=== PATIENT | female | born 1945 | race Caucasian/White ===

== ENCOUNTER 2019-03-01 15:31 | Inpatient (IN) ==
[2019-03-01] MEDS ORDERED: ZOFRAN IV PRN (17:24)
[2019-03-01] MEDS ORDERED: TYLENOL PO PRN (17:24)
[2019-03-01] MEDS: NS 1,000 ML IV SCH (20:38)
[2019-03-02 08:42] LABS: INR 3.69; PROTIME 39.2 Seconds (11.0-16.0)
[2019-03-02] MEDS: TOPROL XL PO SCH (09:00)
[2019-03-02 09:12] LABS: CALCIUM 8.4 mg/dL (8.8-10.2); CREATININE 2.1 mg/dL (0.5-0.9); POTASSIUM 3.4 mmol/L (3.5-5.1)
--- NOTE | 2019-03-02 10:38 | Diag Imaging Result Doc PS360 ---
US ABDOMEN-COMPLETE - 03/02/2019 INDICATION: acute renal failure, ruq pain COMPARISON: None FINDINGS: The liver, gallbladder, spleen, pancreas, and both kidneys are normal. Common bile duct measures 4 mm. Aorta, IVC, and main portal vein are patent. Spleen size is 9.4 cm. IMPRESSION: Negative exam. Electronically signed by Payam Arrieta 03/02/2019 10:35 AM
[2019-03-02] MEDS: NS 1,000 ML IV SCH ×2 (10:40→12:54)
[2019-03-02] MEDS: ZYLOPRIM PO SCH (10:40)
--- NOTE | 2019-03-02 13:24 | HISTORY AND PHYSICAL ---
HISTORY OF PRESENT ILLNESS: Ms. Ifeoma Zambrano is a 73-year-old lady who is well known to me. She has a history of multiple medical problems including paroxysmal atrial fibrillation, essential hypertension, mixed hyperlipidemia, primary hypothyroidism. She has stage III chronic renal failure with a solitary kidney, history of sarcoma and lumbar spinal stenosis with neurogenic claudication. Over the past 2 weeks she has had persistent nausea and vomiting, right upper quadrant abdominal pain and explosive diarrhea. She has been having multiple loose stools per day. Her appetite has been diminished, eating fatty foods or fried foods tends to exacerbate the abdominal discomfort and nausea. She has not had any nausea or vomiting in the past 48 hours. Her bowels have been yellowish green in color. Her family reports that she has not been eating or drinking very well. She has had difficulty voiding. She has only been voiding once or twice per day. As stated earlier, she has renal insufficiency with a baseline creatinine of 1.6 to 1.7. Blood work demonstrated a BUN of 97 and a creatinine of 3.0. She denies any reflux, sour brash, dysphagia, melena or hematochezia. PAST MEDICAL HISTORY: 1. Paroxysmal atrial fibrillation. 2. Essential hypertension. 3. Mixed hyperlipidemia. 4. Primary hypothyroidism. 5. History of sarcoma. 6. Chronic renal insufficiency. 7. Lumbar spinal stenosis with neurogenic claudication. PAST SURGICAL HISTORY: 1. Hysterectomy. 2. Bilateral carpal tunnel release. ALLERGIES: No known drug allergies. FAMILY HISTORY: Her father had lung cancer. Her mother in an MVA. One brother of complications of lung cancer. Another brother of complications of esophageal cancer. Her sister had heart disease, status post [place] and hypertension. SOCIAL HISTORY: She is a former smoker. She does not consume alcoholic beverages. She is a . MEDICATIONS: 1. Allopurinol 300 mg daily. 2. Levothyroxine 125 mcg daily. 3. Losartan 50 mg daily. 4. Metoprolol ER 200 mg daily. 5. Pravastatin 20 mg at bedtime . 6. Torsemide 100 mg daily. 7. Coumadin 7.5 mg on Friday, and Friday and 5 mg on Friday, Friday, Friday and Friday. REVIEW OF SYSTEMS: She has lost 12 pounds over the past 2 weeks.HEENT: She wears glasses. CV: No chest pain, palpitations, or anginal equivalents. Pulmonary: No shortness of breath, PND or orthopnea. GI: No reflux, dysphagia, melena, hematochezia, change in bowel habits, or rectal bleeding. Endocrine: No polyuria, no polydipsia. No cold or heat intolerance. Skin: No easy bruisability. : No leakage of urine with coughing or laughing. Neurologic: No migraines or seizures. Psychiatric: No history of depression. PHYSICAL EXAMINATION: VITAL SIGNS: She is afebrile, pulse 49, BP 110/60. HEENT: Fundi with arteriolar wall thickening. Pupils equal, round, reactive to light. Extraocular eye movements intact. TMs without bullae. NECK: Supple. No masses, JVD or bruits. CV: Regular rate and rhythm. LUNGS: Clear. ABDOMEN: Moderate right upper quadrant tenderness to deep palpation. No rebound or guarding. EXTREMITIES: Without edema. SKIN: No palpable purpura. BREAST/KEYPUNCHER/RECTAL: Deferred. NEUROLOGIC: Nonfocal. ASSESSMENT AND PLAN: 1. Acute renal failure superimposed on chronic renal failure. She has chronic renal failure stage 3 at baseline. Her creatinine has jumped from 1.7 to 3.0. I am going to hold the losartan, torsemide, and cautiously give her fluids. We will check a renal ultrasound to rule out hydronephrosis. We will consult Dr. Lopez. 2. Right upper quadrant abdominal pain. Given the nausea, right upper quadrant pain, pale colored bowel movements and diarrhea, I am concerned that she may have cholecystitis. We will hold her NPO, cautiously rehydrate her, treat her nausea and vomiting on a p.r.n. basis with Zofran and arrange for an ultrasound of the gallbladder. 3. Paroxysmal atrial fibrillation. She remains in normal sinus rhythm. We will check a ProTime and adjust the dosage of the Coumadin to maintain an INR of 2 to 3. We will continue metoprolol-XL for rate control. 4. Given her comorbid conditions and clinical presentation, I believe that admission to the hospital is both necessary and reasonable. I anticipate that she will be in the hospital for at least 2 midnights and I will therefore place her in inpatient status. Failure to aggressively treat her acute renal failure in the setting of a solitary kidney risks the development of end-stage renal disease requiring hemodialysis. As she is taking Coumadin we will hold off using Lovenox for DVT prophylaxis. cc: Riley Sibley MD
--- NOTE | 2019-03-02 13:55 | PROGRESS NOTE ---
DATE: 03/02/2019 SUBJECTIVE: Mrs. Zambrano was admitted to [facility] with acute renal failure. We had held the torsemide, losartan and rehydrated her with normal saline. Her creatinine has dropped from 3.0 to 2.1. Her baseline creatinine is 1.6 to 1.7. She reports that she is voiding more frequently. Blood pressure remains stable. Systolic blood pressures have been in the range of 120 to 135 whereas her diastolic blood pressures have ranged from 60 to 80. She denies any chest pain, palpitations, or anginal equivalents. Her right upper quadrant abdominal pain has resolved. She has had no further nausea or vomiting. An ultrasound of the abdomen demonstrated no obvious gallstones or evidence of hydronephrosis. OBJECTIVE: Vital Signs: Temperature 97.5 degrees, pulse 105, respiratory rate 18, and BP 120/72. CV: Regular rate and rhythm. Lungs: Clear. Abdomen: Soft, nontender with active bowel sounds. No hepatosplenomegaly. No abdominal bruits. ASSESSMENT AND PLAN: Acute renal failure superimposed on chronic renal failure. Kidney function is improving. We will continue to hold torsemide and losartan. I will reduce the fluids to 75 mL per hour. I will recheck a BMP in the morning. cc: Riley Sibley MD
[2019-03-02] MEDS ORDERED: PRAVACHOL PO SCH (21:00)
[2019-03-02] MEDS ORDERED: COUMADIN PO SCH (21:00)
[2019-03-03] MEDS: NS 1,000 ML IV SCH (04:32)
[2019-03-03 06:46] LABS: HEMATOCRIT 34.1 % (37.0-47.0); HEMOGLOBIN 11.6 g/dL (12.0-16.0); MCH 28.3 PG (27-31); MCV 83.2 FL (81-99); MPV 12.8 FL (7.4-10.4); RBC 4.1 XMIL (4.2-5.4); RDW 15.3 % (11.5-14.5); WBC 6.72 X1000 (4.8-10.8)
[2019-03-03] MEDS ORDERED: SYNTHROID PO SCH (07:00)
[2019-03-03 07:25] VITALS: BP 131/51
[2019-03-03 07:27] LABS: CALCIUM 8.5 mg/dL (8.8-10.2); CREATININE 1.7 mg/dL (0.5-0.9); POTASSIUM 3.1 mmol/L (3.5-5.1)
[2019-03-03] MEDS ORDERED: KLOR-CON PO ONE (08:33)
[2019-03-03] MEDS: ZYLOPRIM PO SCH (09:38)
[2019-03-03] MEDS: TOPROL XL PO SCH (09:38)
--- NOTE | 2019-03-03 09:55 | DISCHARGE SUMMARY ---
ADMISSION DATE: 03/01/2019 DISCHARGE DATE: 03/03/2019 DISCHARGE DIAGNOSES: 1. Acute renal failure superimposed on chronic renal failure. 2. Essential hypertension. 3. Mixed hyperlipidemia. 4. Primary hypothyroidism. 5. Paroxysmal atrial fibrillation. 6. Chronic low back pain secondary to lumbar spinal stenosis with neurogenic claudication. 7. Right upper quadrant abdominal pain. DISCHARGE INSTRUCTIONS: 1. Return to clinic in 1 week to see me, Dr. Sergei Sibley, in anticipation of a transition of care visit. 2. Activity as tolerated. 3. Healthy heart diet. MEDICATIONS: 1. Allopurinol 300 mg daily. 2. Levothyroxine 125 mcg daily. 3. Metoprolol-XL 200 mg daily. 4. Pravastatin 20 mg at bedtime. 5. Warfarin 5 mg at night. 6. Torsemide 100 mg daily. DISCHARGE PHYSICAL EXAMINATION: This is a well-developed, well-nourished, 73-year-old lady in no apparent distress. She is afebrile. BP 131/51, pulse 48, respiratory rate 18. CV: Regular rate and rhythm. Lungs: Clear. Abdomen: Soft, nontender, with active bowel sounds. Extremities: Without edema. HOSPITAL COURSE: Ms. Ifeoma Zambrano has a history of chronic renal insufficiency. Her baseline creatinine is in the range of 1.6 to 1.7. She had been having persistent nausea vomiting and diarrhea. She was dehydrated on admission. Her BUN and creatinine were 97 and 3.0. We held the torsemide and losartan. We rehydrated her with normal saline. With fluid resuscitation her renal failure returned back to her baseline. Her creatinine at the time of discharge was 1.7. I have stressed to her the importance of avoiding antiinflammatories, staying well hydrated and reminded her to stop the losartan at home. I will see her back in the office in 1 week for transition of care visit and will recheck a BMP at that time. She does have a history of paroxysmal atrial fibrillation. She remained in normal sinus rhythm throughout her hospitalization. Her heart rate was stable on Toprol. We checked a ProTime. Her INR was 3.6. We reduced the dosage of Coumadin 5 mg at night and will recheck a ProTime in 1 week. She has a history of primary hypothyroidism. She was continued on levothyroxine 125 mcg daily. She did have right upper quadrant abdominal pain. Liver function tests, amylase and lipase were within normal limits. She had no reflux type symptoms. An ultrasound of the abdomen showed no gallstones or hydronephrosis. We treated her nausea on a p.r.n. basis with Zofran and rehydrated her with normal saline. We started her on a clear liquid diet and advanced her to a GI soft diet which she was tolerating without nausea, vomiting, or abdominal pain. DISPOSITION: Having reached maximum hospital benefit, the patient was discharged in stable. cc: Riley Sibley MD
[2019-03-03] MEDS ORDERED: COUMADIN PO SCH ×2 (21:00)
== END 2019-03-03 10:36 | disposition home or self-care (01) | DRG 684 ==
LOC: DIRADM 15:31 → 3N 17:12
PROVIDERS: ADMIT Internal Medicine; ATTEND Internal Medicine
CPT/HCPCS: 36415; 76700; 80048; 80053; 85027; 85610; A9270; J7030